=== PATIENT | female | born 1985 | race Caucasian/White ===

== ENCOUNTER 2023-07-28 14:51 | Emergency (ER) | payer BC ==
[2023-07-28] MEDS ORDERED: Sodium Chloride 0.9% 1,000 ML IV ONE (15:42)
[2023-07-28 15:51] LABS: BASOPHILS ABSOLUTE AUTO 0.07 K/uL (0.00-0.10); BASOPHILS PERCENT AUTO 0.7 % (0.1-1.3); EOSINOPHILS ABSOLUTE AUTO 0.33 K/uL (0.00-0.40); EOSINOPHILS PERCENT AUTO 3.3 % (0.0-5.4); HEMATOCRIT 43.4 % (34.3-46.0); HEMOGLOBIN 14.6 g/dL (11.2-15.5); IMMATURE GRAN ABSOLUTE AUTO 0.03 K/uL (0.00-0.23); IMMATURE GRAN PERCENT AUTO 0.3 % (0.0-0.7); LYMPHOCYTES ABSOLUTE AUTO 2.16 K/uL (0.8-3.3); LYMPHOCYTES PERCENT AUTO 21.5 % (11.4-47.7); MEAN CORPUSCULAR HGB CONC 33.6 g/dL (31.6-35.5); MEAN CORPUSCULAR VOLUME 95.2 fL (81.4-99.0); MONOCYTES ABSOLUTE AUTO 0.64 K/uL (0.20-0.90); MONOCYTES PERCENT AUTO 6.4 % (3.3-12.6); NEUTROPHILS PERCENT AUTO 67.8 % (40.0-78.1); PLATELET COUNT,PLT 293 K/uL (130-375); RED BLOOD CELL COUNT 4.56 M/uL (3.77-5.24)
[2023-07-28 15:59] LABS: APPEARANCE,URINE CLOUDY (CLEAR); BILIRUBIN,URINE NEGATIVE (NEGATIVE); COLOR,URINE YELLOW (YELLOW); GLUCOSE,URINE NEGATIVE (NEGATIVE); KETONES,URINE NEGATIVE (NEGATIVE); LEUKOCYTE ESTERASE,URINE NEGATIVE (NEGATIVE); NITRITE,URINE NEGATIVE (NEGATIVE); OCCULT BLOOD,URINE NEGATIVE (NEGATIVE); PH,URINE 8.5 (5.0-8.0); PROTEIN,URINE 100 mg/dL (NEGATIVE)
[2023-07-28 16:04] LABS: AMORPHOUS SEDIMENT,URINE MANY; BACTERIA,URINE MANY; EPITHELIAL CELLS,URINE MANY; MUCUS,URINE FEW; RBC,URINE 0-5 (0-5); WBC,URINE 0-5 (0-5)
[2023-07-28 16:14] LABS: ANION GAP 10.1 mmol/L (5.0-14.0); CALCIUM 8.2 mg/dL (8.5-10.1); CREATININE 0.8 mg/dL (0.6-1.0); EST CRCL DRUG DOSING (CG) 73.36 mL/min; MAGNESIUM 1.8 mg/dL (1.8-2.4); POTASSIUM,K 3.7 mmol/L (3.6-5.2); TROPONIN I HIGH SENSITIVITY 4.4 pg/mL (<=60.3)
[2023-07-28] MEDS ORDERED: Metoprolol Tartrate 5 MG/5 ML SDV IVPUSH ONE (17:18)
[2023-07-28 17:46] VITALS: BP 131/75; PULSE 89
== END 2023-07-28 18:24 | disposition home or self-care (01) ==
LOC: JP.ED 14:51
DX: R00.0 Tachycardia, unspecified (principal); K21.9 Gastro-esophageal reflux disease without esophagitis; F17.210 Nicotine dependence, cigarettes, uncomplicated; Z79.899 Other long term (current) drug therapy; Z88.2 Allergy status to sulfonamides
CPT/HCPCS: 36415; 71046; 71046-26; 80048; 81001; 83735; 84484; 85025; 93005; 93010; 96361; 96374; 99283; 99285-25; J3490; J7030

== ENCOUNTER 2023-08-05 07:45 | Emergency (ER) | payer BC ==
[2023-08-05 09:03] LABS: APPEARANCE,URINE SLIGHTLY CLOUDY (CLEAR); BILIRUBIN,URINE NEGATIVE (NEGATIVE); COLOR,URINE YELLOW (YELLOW); GLUCOSE,URINE NEGATIVE (NEGATIVE); KETONES,URINE NEGATIVE (NEGATIVE); LEUKOCYTE ESTERASE,URINE NEGATIVE (NEGATIVE); NITRITE,URINE NEGATIVE (NEGATIVE); OCCULT BLOOD,URINE NEGATIVE (NEGATIVE); PH,URINE 7.5 (5.0-8.0); PROTEIN,URINE TRACE mg/dL (NEGATIVE)
[2023-08-05 09:12] LABS: AMORPHOUS SEDIMENT,URINE FEW; BACTERIA,URINE NOT SEEN; EPITHELIAL CELLS,URINE MANY; MUCUS,URINE MANY; RBC,URINE 0-5 (0-5); WBC,URINE 0-5 (0-5)
[2023-08-05 09:43] LABS: CORONAVIRUS COVID-19 NAA NEGATIVE (NEGATIVE); INFLUENZA A NAA NEGATIVE (NEGATIVE); INFLUENZA B NAA NEGATIVE (NEGATIVE); RESPIRATORY SYNCYTIAL VIR NAA NEGATIVE (NEGATIVE)
[2023-08-05] MEDS ORDERED: Amoxicillin/Clavulanate K 875-125 MG Tab PO ONE (09:54)
[2023-08-05 10:26] VITALS: BP 118/76; PULSE 85
== END 2023-08-05 10:28 | disposition home or self-care (01) ==
LOC: JP.ED 07:45
DX: R42 Dizziness and giddiness (principal); R00.0 Tachycardia, unspecified; H66.93 Otitis media, unspecified, bilateral; Z20.822 Contact with and (suspected) exposure to COVID-19; Z79.899 Other long term (current) drug therapy; Z88.2 Allergy status to sulfonamides
CPT/HCPCS: 0241U; 36415; 81001; 81025; 84443; 93005; 93010; 99283; 99285; A9270

== ENCOUNTER 2023-08-24 18:15 | Emergency (ER) | payer BC ==
[2023-08-24 19:22] LABS: BASE EXCESS VENOUS 0.1 mm/L; BICARBONATE,VENOUS 24.1 mmol/L; CARBOXYHEMOGLOBIN 4.5 % (0.0-1.6); HEMATOCRIT 42.5 % (34.3-46.0); HEMOGLOBIN 14.4 g/dL (11.2-15.5); MEAN CORPUSCULAR HEMOGLOBIN 31.8 pg (31.6-35.5); MEAN CORPUSCULAR HGB CONC 33.9 g/dL (31.6-35.5); MEAN CORPUSCULAR VOLUME 93.8 fL (81.4-99.0); METHEMOGLOBIN 0.9 %; O2 SATURATION VENOUS 64.9; OXYHEMOGLOBIN 61.4 %; PCO2 VENOUS 39.3 mm/Hg; PH,VENOUS 7.405 (7.350-7.450); RED BLOOD CELL COUNT 4.53 M/uL (3.77-5.24); TOTAL HEMOGLOBIN 15.2 g/dL (12.0-16.0); WHITE BLOOD CELL COUNT,WBC 9.4 K/uL (3.2-11.0)
[2023-08-24 19:25] LABS: PO2 VENOUS 33.4 mm/Hg
[2023-08-24 19:45] LABS: A/G RATIO 1.1 (1.2-2.2); ALANINE AMINOTRANSFERASE,ALT 24 U/L (12-78); ALBUMIN 3.6 g/dL (3.4-5.0); ALKALINE PHOSPHATASE 76 U/L (46-116); ANION GAP 9.9 mmol/L (5.0-14.0); ASPARTATE AMNIOTRANSFERASE,AST 12 U/L (15-37); BILIRUBIN TOTAL 0.4 mg/dL (0.2-1.0); BLOOD UREA NITROGEN,BUN 11 mg/dL (7-18); CALCIUM 8.6 mg/dL (8.5-10.1); CARBON DIOXIDE,CO2 25 mmol/L (21-32); CHLORIDE,CL 107 mmol/L (100-108); CREATININE 0.7 mg/dL (0.6-1.0); EST CRCL DRUG DOSING (CG) 83.84 mL/min; ESTIMATED GFR 115 mL/min (>60); GLUCOSE RANDOM 100 mg/dL (74-106); POTASSIUM,K 3.8 mmol/L (3.6-5.2); PROTEIN TOTAL,TP 6.8 g/dL (6.4-8.2); SODIUM,NA 142 mmol/L (140-148)
[2023-08-24 19:58] LABS: APPEARANCE,URINE CLOUDY (CLEAR); BILIRUBIN,URINE NEGATIVE (NEGATIVE); COLOR,URINE YELLOW (YELLOW); GLUCOSE,URINE NEGATIVE (NEGATIVE); KETONES,URINE NEGATIVE (NEGATIVE); LEUKOCYTE ESTERASE,URINE NEGATIVE (NEGATIVE); NITRITE,URINE NEGATIVE (NEGATIVE); OCCULT BLOOD,URINE NEGATIVE (NEGATIVE); PH,URINE 5.5 (5.0-8.0); PROTEIN,URINE NEGATIVE (NEGATIVE); UROBILINOGEN,URINE 0.2 EU/dL (0.2-1.0)
[2023-08-24 20:02] LABS: AMPHETAMINES SCREEN, URINE NEGATIVE (NEGATIVE); BARBITURATE SCREEN,URINE NEGATIVE (NEGATIVE); BENZODIAZEPINES SCREEN,URINE PRESUMPTIVE POSITIVE (NEGATIVE); METHADONE SCREEN, URINE NEGATIVE (NEGATIVE); METHAMPHETAMINES SCREEN, URINE NEGATIVE (NEGATIVE); OXYCODONE SCREEN,URINE NEGATIVE (NEGATIVE); PROPOXYPHENE SCREEN,URINE NEGATIVE (NEGATIVE); THC SCREEN,URINE 50 NG/ML NEGATIVE (NEGATIVE)
[2023-08-24 20:04] LABS: AMORPHOUS SEDIMENT,URINE FEW; BACTERIA,URINE MODERATE; EPITHELIAL CELLS,URINE MANY; MUCUS,URINE MODERATE; RBC,URINE 0-5 (0-5); WBC,URINE 0-5 (0-5)
[2023-08-24 20:33] VITALS: BP 132/80; PULSE 72
== END 2023-08-24 20:42 | disposition home or self-care (01) ==
LOC: JP.ED 18:15
DX: R42 Dizziness and giddiness (principal); K21.9 Gastro-esophageal reflux disease without esophagitis; Z88.2 Allergy status to sulfonamides; Z79.899 Other long term (current) drug therapy
CPT/HCPCS: 36415; 70450; 80053; 80305-QW; 81001; 81025; 82803; 84484; 85027; 85379; 87086; 93005; 99285

== ENCOUNTER 2023-08-27 06:23 | Day surgery (SDC) | payer BC ==
[2023-08-27] MEDS ORDERED: Lactated Ringers 1,000 ML IV SCH (07:00)
[2023-08-27] MEDS ORDERED: Midazolam 1 MG/ML 2 ML SDV ONE (07:20)
[2023-08-27] MEDS ORDERED: fentaNYL 100 MCG/2 ML SDV ONE (07:20)
[2023-08-27] MEDS ORDERED: Propofol 200 MG/20 ML SDV ONE (07:20)
[2023-08-27 08:48] VITALS: BP 117/64; PULSE 68
== END 2023-08-27 08:57 | disposition home or self-care (01) ==
LOC: JP.SDS 06:23
PROVIDERS: ATTEND Family Medicine
DX: K29.50 Unspecified chronic gastritis without bleeding (principal); K21.9 Gastro-esophageal reflux disease without esophagitis; Z79.899 Other long term (current) drug therapy; Z88.2 Allergy status to sulfonamides
CPT/HCPCS: 43239; 81025; J2250; J2704; J3010; J7120; 88305

== ENCOUNTER 2023-09-16 08:20 | Emergency (ER) | payer BC ==
[2023-09-16 09:02] LABS: BASOPHILS ABSOLUTE AUTO 0.06 K/uL (0.00-0.10); BASOPHILS PERCENT AUTO 0.6 % (0.1-1.3); EOSINOPHILS ABSOLUTE AUTO 0.22 K/uL (0.00-0.40); EOSINOPHILS PERCENT AUTO 2.3 % (0.0-5.4); HEMATOCRIT 40.3 % (34.3-46.0); HEMOGLOBIN 13.6 g/dL (11.2-15.5); IMMATURE GRAN ABSOLUTE AUTO 0.03 K/uL (0.00-0.23); IMMATURE GRAN PERCENT AUTO 0.3 % (0.0-0.7); LYMPHOCYTES ABSOLUTE AUTO 1.91 K/uL (0.8-3.3); LYMPHOCYTES PERCENT AUTO 20.3 % (11.4-47.7); MEAN CORPUSCULAR HEMOGLOBIN 31.8 pg (31.6-35.5); MEAN CORPUSCULAR HGB CONC 33.7 g/dL (31.6-35.5); MEAN CORPUSCULAR VOLUME 94.2 fL (81.4-99.0); MONOCYTES ABSOLUTE AUTO 0.58 K/uL (0.20-0.90); MONOCYTES PERCENT AUTO 6.2 % (3.3-12.6); NEUTROPHILS ABSOLUTE AUTO 6.59 K/uL (1.0-7.6); NEUTROPHILS PERCENT AUTO 70.3 % (40.0-78.1); PLATELET COUNT,PLT 286 K/uL (130-375); RED BLOOD CELL COUNT 4.28 M/uL (3.77-5.24); WHITE BLOOD CELL COUNT,WBC 9.4 K/uL (3.2-11.0)
[2023-09-16 09:26] LABS: ANION GAP 7.3 mmol/L (5.0-14.0); BLOOD UREA NITROGEN,BUN 10 mg/dL (7-18); CALCIUM 8.3 mg/dL (8.5-10.1); CARBON DIOXIDE,CO2 26 mmol/L (21-32); CHLORIDE,CL 107 mmol/L (100-108); CREATININE 0.8 mg/dL (0.6-1.0); EST CRCL DRUG DOSING (CG) 73.36 mL/min; ESTIMATED GFR 98 mL/min (>60); GLUCOSE RANDOM 109 mg/dL (74-106); POTASSIUM,K 3.6 mmol/L (3.6-5.2); SODIUM,NA 140 mmol/L (140-148)
[2023-09-16 09:30] LABS: TROPONIN I HIGH SENSITIVITY < 4.0 pg/mL (<=60.3)
[2023-09-16 10:13] VITALS: BP 106/72; PULSE 74
== END 2023-09-16 10:15 | disposition home or self-care (01) ==
LOC: JP.ED 08:20
DX: I47.10 Supraventricular tachycardia, unspecified (principal); Z88.2 Allergy status to sulfonamides; Z79.899 Other long term (current) drug therapy
CPT/HCPCS: 36415; 80048; 84484; 85025; 93005; 99285

== ENCOUNTER 2023-09-24 17:05 | Emergency (ER) | payer BC ==
[2023-09-24 18:58] LABS: BASOPHILS ABSOLUTE AUTO 0.07 K/uL (0.00-0.10); BASOPHILS PERCENT AUTO 0.6 % (0.1-1.3); EOSINOPHILS ABSOLUTE AUTO 0.16 K/uL (0.00-0.40); EOSINOPHILS PERCENT AUTO 1.3 % (0.0-5.4); HEMATOCRIT 42.8 % (34.3-46.0); HEMOGLOBIN 14.4 g/dL (11.2-15.5); IMMATURE GRAN ABSOLUTE AUTO 0.05 K/uL (0.00-0.23); IMMATURE GRAN PERCENT AUTO 0.4 % (0.0-0.7); LYMPHOCYTES ABSOLUTE AUTO 2.04 K/uL (0.8-3.3); LYMPHOCYTES PERCENT AUTO 16.7 % (11.4-47.7); MEAN CORPUSCULAR HEMOGLOBIN 31.4 pg (31.6-35.5); MEAN CORPUSCULAR HGB CONC 33.6 g/dL (31.6-35.5); MEAN CORPUSCULAR VOLUME 93.2 fL (81.4-99.0); MONOCYTES ABSOLUTE AUTO 0.66 K/uL (0.20-0.90); MONOCYTES PERCENT AUTO 5.4 % (3.3-12.6); NEUTROPHILS ABSOLUTE AUTO 9.23 K/uL (1.0-7.6); NEUTROPHILS PERCENT AUTO 75.6 % (40.0-78.1); PLATELET COUNT,PLT 298 K/uL (130-375); RED BLOOD CELL COUNT 4.59 M/uL (3.77-5.24); WHITE BLOOD CELL COUNT,WBC 12.2 K/uL (3.2-11.0)
[2023-09-24 19:21] LABS: BLOOD UREA NITROGEN,BUN 7 mg/dL (7-18); CALCIUM 8.8 mg/dL (8.5-10.1); CARBON DIOXIDE,CO2 25 mmol/L (21-32); CHLORIDE,CL 104 mmol/L (100-108); CREATININE 0.8 mg/dL (0.6-1.0); EST CRCL DRUG DOSING (CG) 73.36 mL/min; ESTIMATED GFR 98 mL/min (>60); GLUCOSE RANDOM 87 mg/dL (74-106); POTASSIUM,K 3.6 mmol/L (3.6-5.2); SODIUM,NA 139 mmol/L (140-148)
[2023-09-24 19:22] LABS: ANION GAP 13.6 mmol/L (5.0-14.0); TROPONIN I HIGH SENSITIVITY < 4.0 pg/mL (<=60.3)
[2023-09-24] MEDS ORDERED: Alum Hydrox/Mag Hydrox/Simeth 15 ML, Lidocaine 2% 15 ML PO ONE ×2 (19:23)
[2023-09-24] MEDS ORDERED: Sodium Chloride 0.9% 1,000 ML IV ONE (19:57)
[2023-09-24 20:37] VITALS: BP 112/71; PULSE 94
== END 2023-09-24 21:17 | disposition home or self-care (01) ==
LOC: JP.ED 17:05
DX: R07.9 Chest pain, unspecified (principal); K21.9 Gastro-esophageal reflux disease without esophagitis; F17.210 Nicotine dependence, cigarettes, uncomplicated; Z88.2 Allergy status to sulfonamides; E66.9 Obesity, unspecified; Z68.41 Body mass index [BMI] 40.0-44.9, adult
CPT/HCPCS: 36415; 71046; 80048; 84484; 85025; 93005; 99285; A9270; J7030

== ENCOUNTER 2023-10-21 12:59 | Emergency (ER) | payer BC ==
[2023-10-21 14:34] LABS: BASOPHILS ABSOLUTE AUTO 0.07 K/uL (0.00-0.10); BASOPHILS PERCENT AUTO 0.6 % (0.1-1.3); EOSINOPHILS ABSOLUTE AUTO 0.11 K/uL (0.00-0.40); EOSINOPHILS PERCENT AUTO 0.9 % (0.0-5.4); HEMOGLOBIN 14.2 g/dL (11.2-15.5); IMMATURE GRAN ABSOLUTE AUTO 0.03 K/uL (0.00-0.23); IMMATURE GRAN PERCENT AUTO 0.3 % (0.0-0.7); LYMPHOCYTES ABSOLUTE AUTO 1.53 K/uL (0.8-3.3); LYMPHOCYTES PERCENT AUTO 12.8 % (11.4-47.7); MEAN CORPUSCULAR HEMOGLOBIN 31.1 pg (31.6-35.5); MEAN CORPUSCULAR HGB CONC 33.8 g/dL (31.6-35.5); MEAN CORPUSCULAR VOLUME 92.1 fL (81.4-99.0); MONOCYTES ABSOLUTE AUTO 0.65 K/uL (0.20-0.90); MONOCYTES PERCENT AUTO 5.5 % (3.3-12.6); NEUTROPHILS ABSOLUTE AUTO 9.52 K/uL (1.0-7.6); NEUTROPHILS PERCENT AUTO 79.9 % (40.0-78.1); PLATELET COUNT,PLT 309 K/uL (130-375); RED BLOOD CELL COUNT 4.56 M/uL (3.77-5.24); WHITE BLOOD CELL COUNT,WBC 11.9 K/uL (3.2-11.0)
[2023-10-21 14:49] LABS: CALCIUM 8.6 mg/dL (8.5-10.1); CREATININE 0.7 mg/dL (0.6-1.0); EST CRCL DRUG DOSING (CG) 83.84 mL/min; POTASSIUM,K 3.7 mmol/L (3.6-5.2)
[2023-10-21 15:28] LABS: CORONAVIRUS COVID-19 NAA NEGATIVE (NEGATIVE); INFLUENZA A NAA NEGATIVE (NEGATIVE); INFLUENZA B NAA NEGATIVE (NEGATIVE); RESPIRATORY SYNCYTIAL VIR NAA NEGATIVE (NEGATIVE)
[2023-10-21 16:08] VITALS: BP 125/68; PULSE 87
== END 2023-10-21 16:00 | disposition home or self-care (01) ==
LOC: JP.ED 12:59
DX: I47.9 Paroxysmal tachycardia, unspecified (principal); I47.11 Inappropriate sinus tachycardia, so stated; R00.2 Palpitations; K21.9 Gastro-esophageal reflux disease without esophagitis; E66.9 Obesity, unspecified; Z68.41 Body mass index [BMI] 40.0-44.9, adult; Z88.2 Allergy status to sulfonamides
CPT/HCPCS: 0241U; 36415; 80048; 84484; 85025; 85379; 93005; 93971; 99285; 93010; 99284

== ENCOUNTER 2023-12-26 18:26 | Emergency (ER) | payer BC ==
[2023-12-26 19:03] VITALS: BP 122/79; PULSE 96
[2023-12-26 19:15] LABS: BASOPHILS ABSOLUTE AUTO 0.05 K/uL (0.00-0.10); BASOPHILS PERCENT AUTO 0.5 % (0.1-1.3); HEMATOCRIT 42.8 % (34.3-46.0); HEMOGLOBIN 14.3 g/dL (11.2-15.5); IMMATURE GRAN ABSOLUTE AUTO 0.02 K/uL (0.00-0.23); IMMATURE GRAN PERCENT AUTO 0.2 % (0.0-0.7); LYMPHOCYTES PERCENT AUTO 23.5 % (11.4-47.7); MEAN CORPUSCULAR HEMOGLOBIN 30.6 pg (31.6-35.5); MEAN CORPUSCULAR HGB CONC 33.4 g/dL (31.6-35.5); MEAN CORPUSCULAR VOLUME 91.6 fL (81.4-99.0); MONOCYTES ABSOLUTE AUTO 0.76 K/uL (0.20-0.90); MONOCYTES PERCENT AUTO 7.4 % (3.3-12.6); NEUTROPHILS ABSOLUTE AUTO 6.79 K/uL (1.0-7.6); NEUTROPHILS PERCENT AUTO 66.4 % (40.0-78.1); PLATELET COUNT,PLT 276 K/uL (130-375); RED BLOOD CELL COUNT 4.67 M/uL (3.77-5.24); WHITE BLOOD CELL COUNT,WBC 10.2 K/uL (3.2-11.0)
[2023-12-26 19:34] LABS: APPEARANCE,URINE CLEAR (CLEAR); BILIRUBIN,URINE NEGATIVE (NEGATIVE); COLOR,URINE YELLOW (YELLOW); GLUCOSE,URINE NEGATIVE (NEGATIVE); KETONES,URINE NEGATIVE (NEGATIVE); LEUKOCYTE ESTERASE,URINE NEGATIVE (NEGATIVE); NITRITE,URINE NEGATIVE (NEGATIVE); OCCULT BLOOD,URINE LARGE (NEGATIVE); PROTEIN,URINE NEGATIVE (NEGATIVE)
[2023-12-26 19:42] LABS: ALANINE AMINOTRANSFERASE,ALT 25 U/L (12-78); ALBUMIN 3.6 g/dL (3.4-5.0); ALKALINE PHOSPHATASE 79 U/L (46-116); ANION GAP 8.8 mmol/L (5.0-14.0); ASPARTATE AMNIOTRANSFERASE,AST 10 U/L (15-37); BILIRUBIN TOTAL 0.7 mg/dL (0.2-1.0); BLOOD UREA NITROGEN,BUN 11 mg/dL (7-18); CALCIUM 8.7 mg/dL (8.5-10.1); CARBON DIOXIDE,CO2 28 mmol/L (21-32); CHLORIDE,CL 104 mmol/L (100-108); CREATININE 0.7 mg/dL (0.6-1.0); EST CRCL DRUG DOSING (CG) 83.84 mL/min; ESTIMATED GFR 115 mL/min (>60); GLUCOSE RANDOM 94 mg/dL (74-106); MAGNESIUM 1.8 mg/dL (1.8-2.4); POTASSIUM,K 4.1 mmol/L (3.6-5.2); PRO B-TYPE NATRIUR PEPT,BNPPRO 28 pg/mL (5-125); PROTEIN TOTAL,TP 7.1 g/dL (6.4-8.2); SODIUM,NA 141 mmol/L (140-148); TROPONIN I HIGH SENSITIVITY < 4.0 pg/mL (<=60.3)
[2023-12-26 19:47] LABS: AMORPHOUS SEDIMENT,URINE NOT SEEN; BACTERIA,URINE FEW; EPITHELIAL CELLS,URINE FEW; MUCUS,URINE NOT SEEN; WBC,URINE 0-5 (0-5)
[2023-12-26 19:48] LABS: AMPHETAMINES SCREEN, URINE NEGATIVE (NEGATIVE); BARBITURATE SCREEN,URINE NEGATIVE (NEGATIVE); BENZODIAZEPINES SCREEN,URINE NEGATIVE (NEGATIVE); METHADONE SCREEN, URINE NEGATIVE (NEGATIVE); METHAMPHETAMINES SCREEN, URINE NEGATIVE (NEGATIVE); OXYCODONE SCREEN,URINE NEGATIVE (NEGATIVE); PROPOXYPHENE SCREEN,URINE NEGATIVE (NEGATIVE); THC SCREEN,URINE 50 NG/ML NEGATIVE (NEGATIVE)
== END 2023-12-26 21:06 | disposition home or self-care (01) ==
LOC: JP.ED 18:26
DX: R42 Dizziness and giddiness (principal); K21.9 Gastro-esophageal reflux disease without esophagitis; F17.210 Nicotine dependence, cigarettes, uncomplicated; E66.9 Obesity, unspecified; Z68.41 Body mass index [BMI] 40.0-44.9, adult; Z79.899 Other long term (current) drug therapy; Z88.2 Allergy status to sulfonamides
CPT/HCPCS: 36415; 71046; 71046-26; 80053; 80305-QW; 81001; 81025; 83690; 83735; 83880; 84484; 85025; 85379; 85610; 93005; 93010; 99283; 99284

== ENCOUNTER 2025-04-20 21:52 | Emergency (ER) | payer BC ==
[2025-04-20 22:53] VITALS: BP 114/61; PULSE 90
[2025-04-20 23:17] LABS: BASOPHILS ABSOLUTE AUTO 0.06 K/uL (0.00-0.10); BASOPHILS PERCENT AUTO 0.5 % (0.1-1.3); EOSINOPHILS ABSOLUTE AUTO 0.29 K/uL (0.00-0.40); EOSINOPHILS PERCENT AUTO 2.5 % (0.0-5.4); IMMATURE GRAN ABSOLUTE AUTO 0.03 K/uL (0.00-0.23); IMMATURE GRAN PERCENT AUTO 0.3 % (0.0-0.7); LYMPHOCYTES ABSOLUTE AUTO 3.19 K/uL (0.8-3.3); LYMPHOCYTES PERCENT AUTO 27.2 % (11.4-47.7); MONOCYTES ABSOLUTE AUTO 0.65 K/uL (0.20-0.90); MONOCYTES PERCENT AUTO 5.5 % (3.3-12.6); NEUTROPHILS ABSOLUTE AUTO 7.51 K/uL (1.0-7.6); NEUTROPHILS PERCENT AUTO 64.0 % (40.0-78.1); PLATELET COUNT,PLT 293 K/uL (130-375); RED BLOOD CELL COUNT 4.30 M/uL (3.77-5.24); WHITE BLOOD CELL COUNT,WBC 11.7 K/uL (3.2-11.0)
[2025-04-20 23:37] LABS: A/G RATIO 0.9 (1.2-2.2); ALANINE AMINOTRANSFERASE,ALT 22 U/L (12-78); ASPARTATE AMNIOTRANSFERASE,AST 12 U/L (15-37); BILIRUBIN TOTAL 0.5 mg/dL (0.2-1.0); BLOOD UREA NITROGEN,BUN 11 mg/dL (7-18); CARBON DIOXIDE,CO2 30 mmol/L (21-32); CHLORIDE,CL 103 mmol/L (100-108); CREATININE 0.7 mg/dL (0.6-1.0); EST CRCL DRUG DOSING (CG) 83.03 mL/min; ESTIMATED GFR 114 mL/min (>60); GLUCOSE RANDOM 114 mg/dL (74-106); POTASSIUM,K 3.5 mmol/L (3.6-5.2); PROTEIN TOTAL,TP 6.9 g/dL (6.4-8.2); SODIUM,NA 140 mmol/L (140-148)
[2025-04-20 23:43] LABS: LACTIC ACID 1.0 mmol/L (0.4-2.0)
[2025-04-20 23:56] LABS: APPEARANCE,URINE CLEAR (CLEAR); GLUCOSE,URINE NEGATIVE (NEGATIVE); OCCULT BLOOD,URINE TRACE-INTACT (NEGATIVE)
[2025-04-21 00:11] LABS: SQUAMOUS EPITHELIAL CELLS,UR MODERATE /HPF; UROTHELIAL CELLS,URINE NOT SEEN /HPF
== END 2025-04-21 00:22 | disposition home or self-care (01) ==
LOC: JP.ED 21:52
DX: R10.31 Right lower quadrant pain (principal); E66.9 Obesity, unspecified; K21.9 Gastro-esophageal reflux disease without esophagitis; F17.200 Nicotine dependence, unspecified, uncomplicated; Z79.899 Other long term (current) drug therapy; Z88.2 Allergy status to sulfonamides; Z88.1 Allergy status to other antibiotic agents; Z88.8 Allergy status to other drugs, medicaments and biological substances; Z68.41 Body mass index [BMI] 40.0-44.9, adult
CPT/HCPCS: 36415; 80053; 81001; 81025; 83605; 83690; 85025; 86140; 99284